=== PATIENT | female | born 1970 | race Caucasian/White ===

== ENCOUNTER → 2019-02-17 | Outpatient (CLI) | payer BC | LOC: COL.RAD 09:44 | DX: R10.11 Right upper quadrant pain (principal) ==

== ENCOUNTER → 2019-12-27 | Outpatient (CLI) | payer BC | LOC: COL.RAD 08:00 | DX: K31.84 Gastroparesis (principal) ==

== ENCOUNTER 2022-12-02 17:31 | Emergency (ER) | payer BC ==
[~2022-12-02] VITALS: Ht 152.4 cm; Wt 68.2 kg
[2022-12-02 17:37] VITALS: TEMP 100.6
[2022-12-02] MEDS ORDERED: PROAIR HFA0.09 MG/AC IH (19:53)
[2022-12-02 20:00] VITALS: BP 120/81; PULSE 110
== END 2022-12-02 20:03 | disposition home or self-care (01) ==
LOC: COL.ER 17:31
DX: J21.0 Acute bronchiolitis due to respiratory syncytial virus (principal); Z20.822 Contact with and (suspected) exposure to COVID-19